=== PATIENT | male | born 2005 | race Caucasian/White ===

== ENCOUNTER 2025-02-27 20:38 | Emergency (ER) | payer SELFPAY ==
[2025-02-27 20:42] VITALS: BP 141/83; PULSE 98; RESP 18; TEMP 36.8; O2SAT 98; BMI 32.5
--- NOTE | 2025-02-27 20:53 | ED.EYEPROB ---
HPI - Eye Problem General Date Seen: 02/27/25 Chief complaint: Eye Problems Stated complaint: chunk of rust in right eye Time Seen by Provider: 02/27/25 20:41 Source: patient Mode of arrival: ambulatory Limitations: no limitations History of Present Illness HPI Narrative: Patient is a 19-year-old male presenting to the emergency department for right eye discomfort. He does not were contacts. States about 14:00 he was working when he feel like he got some rust in his right eye. States there was some discomfort to the eye but there is no symptoms when he kept his eye closed. Did have some redness to the eye and there was some watering to the eye. Denies any vision changes. Denies any other concerns. States by time he got to the emergency department though he feels like the trunk of rust in his eye fell out. Was not having any symptoms when he arrived. No other concerns noted Related Data Home Medications ?Medication ?Instructions ?Recorded ?Confirmed No Known Home Medications 02/27/25 02/27/25 Allergies Allergy/AdvReac Type Severity Reaction Status Date / Time No Known Drug Allergies Allergy Verified 02/27/25 20:44 Review of Systems Narrative: Pertinent systems reviewed and were negative unless stated in HPI Exam Narrative: Exam Narrative: Const: Well-nourished, Well-developed, in no distress Eyes: PERRL, mild conjunctival redness to the right eye, and symmetrical lids. Possible small abrasion noted on fluorescein exam to the right most aspect of the cornea over the iris in his right eye HENT: Atraumatic external nose and ears. Moist mucous membranes. MSK:Extremities w/o deformity, Normal Active ROM Skin: Warm, Dry. No rashes or lesions. Neuro: Normal Muscle tone, No focal neurological deficits. Psych: Awake, Alert, & Oriented x3. Appropriate mood and affect. Const: Vital Signs, click to edit/add: Vital Signs - 24 hr 02/27/25 20:42 Temperature 98.3 F Pulse Rate [Pulse Oximeter] 98 Respiratory Rate 18 Blood Pressure [Ri ght Upper Arm] 141/83 H Pulse Oximetry 98 Oxygen Delivery Me thod Room Air Course Vital Signs Vital signs: Initial Vital Signs Temperature 98.3 F 02/27/25 20:42 Temperature Source Temporal Artery Scan 02/27/25 20:42 Pulse Rate 98 02/27/25 20:42 Respiratory Rate 18 02/27/25 20:42 Blood Pressure 141/83 H 02/27/25 20:42 Blood Pressure Mean 102 02/27/25 20:42 Blood Pressure Position Sitting 02/27/25 20:42 Pulse Oximetry 98 02/27/25 20:42 Oxygen Delivery Method Room Air 02/27/25 20:42 Vital Signs Temperature 98.3 F 02/27/25 20:42 Pulse Rate 98 02/27/25 20:42 Respiratory Rate 18 02/27/25 20:42 Blood Pressure 141/83 H 02/27/25 20:42 Pulse Oximetry 98 02/27/25 20:42 Oxygen Delivery Method Room Air 02/27/25 20:42 Temperature 98.3 F 02/27/25 20:42 Pulse Rate 98 02/27/25 20:42 Respiratory Rate 18 02/27/25 20:42 Blood Pressure 141/83 H 02/27/25 20:42 Pulse Oximetry 98 02/27/25 20:42 Oxygen Delivery Method Room Air 02/27/25 20:42 MDM - Eye Problem MDM Narrative Medical decision making narrative: Patient is a 19-year-old male presenting for right eye pain. He believes he got some rest in his eye. No foreign body noted on his I on my exam. No foreign bodies noted underneath the eyelids. No signs of a rust ring. Cannot say for certain but the does appear to be a corneal abrasion. Was not having any symptoms by time he arrived. He does not were contacts. Will send him home with antibiotics via [facility]. Prescribed sulfacetamide as that is was available in [facility]. He will be discharged. He is agreeable to this plan. Tetanus is up-to-date Discharge Plan Discharge Clinical Impression: Corneal abrasion Qualifiers: Encounter type: initial encounter Laterality: right Qualified Code(s): S05.01XA - Injury of conjunctiva and corneal abrasion without foreign body, right eye, initial encounter Patient Disposition: Home, Self-Care Condition: Stable Instructions: Corneal Abrasion (ED) Additional Instructions: Use the prescribed antibiotic as directed. Do recommend following up with Optometry or Ophthalmology for your corneal abrasion. Return to emergency department for new or worsening symptoms. Recommend not wearing any kind of contact until symptoms fully resolve Prescriptions: No Action No Known Home Medications Stand Alone Forms: [employer] Info Instructions
[2025-02-27] MEDS: FLUORESCEIN SODIUM TOPICAL STRIP 1 STRIP EYE-RIGHT (21:00)
[2025-02-27] MEDS: TETRACAINE 0.5% OPHTH 1 DROP EYE-RIGHT (21:02)
== END 2025-02-27 21:16 | disposition home or self-care (01) ==
LOC: ED 20:59
PROVIDERS: Emergency Provider Student in an Organized Health Care Education/Training Program
DX: S05.01XA Injury of conjunctiva and corneal abrasion without foreign body, right eye, initial encounter (principal)
CPT/HCPCS: 99283; A9270